=== PATIENT | male | born 1960 | race Caucasian/White ===

== ENCOUNTER 2024-01-30 12:02 | Outpatient (CLI) | payer BC, SELFPAY ==
--- NOTE | ~2024-01-30 | XR_ITS ---
Left Knee Technique: AP, lateral, and sunrise views were obtained. Clinical History: Pain Findings: No fracture or dislocation is seen. Osseous alignment is anatomic. Minimal tricompartmental degenerative spurring present. Soft tissues are unremarkable. No joint effusion is seen. Impression: Minimal tricompartmental degenerative spurring. Reviewed, dictated and finalized at [facility]. 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
--- NOTE | ~2024-01-30 | XR_ITS ---
Right Knee Technique: AP, lateral, and sunrise views were obtained. Clinical History: Pain Findings: No fracture or dislocation is seen. Osseous alignment is anatomic. Joint spaces are preserv ed with minimal degenerative patellar spurring. Soft tissues are unremarkable. No joint effusion is s een. Impression: Minimal patellar spurring. Reviewed, dictated and finalized at location . 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
== END 2024-01-30 12:03 | disposition home or self-care (01) ==
LOC: GOSHIMG 12:04
PROVIDERS: PCP Orthopaedic Surgery; Visit Provider Nurse Practitioner Family
DX: M25.562 Pain in left knee (principal); M25.561 Pain in right knee
CPT/HCPCS: 73564